=== PATIENT | male | born 1945 | race Caucasian/White ===

== ENCOUNTER 2019-06-21 13:02 | Day surgery (SDC) | payer MEDICARE, OTHER ==
[~2019-06-21] VITALS: Ht 190.5 cm; Wt 117.4 kg
[~2019-06-21 13:02] MED LIST: DIOVAN 40MG40 MG; NORCO 325 MG-51 TAB PO; NORVASC2.5 MG PO
[2019-06-21 13:30] LABS: INR 1.6 (0.8-3.0); PROTHROMBIN TIME 18.9 SECONDS (9.7-12.8)
[2019-06-21 13:38] LABS: POTASSIUM 3.9 mmol/L (3.4-5.0)
[2019-06-21] MEDS ORDERED: BENICAR HCT 251 TAB PO (13:57)
[2019-06-21] MEDS ORDERED: ELIQUIS 5MG PO (13:58)
[2019-06-21 13:59] VITALS: BP 121/74; PULSE 63; TEMP 98.3
[2019-06-21] MEDS ORDERED: MULTAQ400 MG PO (13:59)
[2019-06-21 14:12] LABS: THYROID STIMULATING HORMONE 1.76 uIU/mL (0.465-4.680)
[2019-06-21 15:15] VITALS: BP 121/71; PULSE 59
[2019-06-21 15:30] VITALS: BP 127/75; PULSE 60
[2019-06-21 15:45] VITALS: BP 126/69; PULSE 60
[2019-06-21 16:00] VITALS: BP 129/80; PULSE 60
[2019-06-21 16:15] VITALS: BP 122/69; PULSE 61
--- NOTE | 2019-06-21 16:32 | NUR ---
BS report received from Ryder RN, pt is awake and alert, resting on stretcher, satting high 90's room air, post procedure EKG has been obtained. regular rhythm on monitor. pt denies any pain or complaints. he is accompanied by his
--- NOTE | 2019-06-21 16:35 | NUR ---
Pt ready for discharge, he has been ambulatory with steady gait in room, has voided, denies any dizziness or other sx. saline lock dc'd, cath intact, pressure dressing applied. dc instructions were reviewed with patient and , was aware of need to call for follow up with cardiology in 3 weeks. escorted to exit via wheelchair.
== END 2019-06-21 16:37 | disposition home or self-care (01) ==
LOC: COL.CAR 13:02
PROVIDERS: Internal Medicine Interventional Cardiology
DX: I48.2 Chronic atrial fibrillation (principal); Z79.01 Long term (current) use of anticoagulants; Z79.899 Other long term (current) drug therapy; I10 Essential (primary) hypertension; K43.9 Ventral hernia without obstruction or gangrene; G47.33 Obstructive sleep apnea (adult) (pediatric); E66.01 Morbid (severe) obesity due to excess calories; E11.9 Type 2 diabetes mellitus without complications; Z95.0 Presence of cardiac pacemaker; Z68.33 Body mass index [BMI] 33.0-33.9, adult; D64.9 Anemia, unspecified; Z80.1 Family history of malignant neoplasm of trachea, bronchus and lung; Z80.42 Family history of malignant neoplasm of prostate; Z80.8 Family history of malignant neoplasm of other organs or systems; Z88.2 Allergy status to sulfonamides; Z88.8 Allergy status to other drugs, medicaments and biological substances; Z91.041 Radiographic dye allergy status
CPT/HCPCS: J2704; J7030

== ENCOUNTER → 2022-02-24 | Outpatient (CLI) | payer MEDICARE ==
[~2022-02-24] MED LIST changes: +BENICAR HCT 251 TAB PO; +BETAPACE 120MG120 MG PO; +ELIQUIS 5MG PO; +MULTAQ400 MG PO
== END ==
LOC: COL.RAD 06:52
DX: Z01.812 Encounter for preprocedural laboratory examination (principal); R26.81 Unsteadiness on feet